=== PATIENT | male | born 1970 | race African-American/Black ===

== ENCOUNTER 2019-03-28 10:42 | Emergency (ER) | payer OTHER ==
[~2019-03-28] VITALS: Ht 175.3 cm; Wt 79.4 kg
[2019-03-28 11:01] LABS: ABSOLUTE NEUTROPHILS 9.7 thou/uL (1.4-8.2); BASOPHILS 0.6 % (0.0-2.0); EOSINOPHILS 1.4 % (0.0-3.0); HEMATOCRIT 36.7 % (42.0-52.0); HEMOGLOBIN 12.8 gm/dL (14.0-18.0); MCH 31.4 pg (26.0-34.0); MCV 89.8 fL (80.0-100.0); MONOCYTES 8.6 % (1.0-8.0); PLATELET COUNT 307 thou/uL (150-400); POLYS 76.4 % (36.0-66.0); RBC 4.09 mil/uL (4.50-6.00); RDW 12.8 % (10.5-14.5); WBC 12.7 thou/uL (4.0-11.0)
[2019-03-28 11:16] LABS: CALCIUM 9.6 mg/dL (8.5-10.1); CREATININE 0.8 mg/dL (0.7-1.3); POTASSIUM 3.4 mmol/L (3.5-5.1)
[2019-03-28 11:22] LABS: ALBUMIN 3.3 g/dL (3.4-5.0); TOTAL BILIRUBIN 0.6 mg/dL (<0.1-1.0)
[2019-03-28] MEDS ORDERED: DOXYCYCLINE 10100 MG PO (12:14)
[2019-03-28] MEDS ORDERED: TESSALON PERLE100 MG PO (12:14)
[2019-03-28 12:23] VITALS: BP 132/64
--- NOTE | 2019-03-28 16:23 | EKG ---
[place] [address] [facility] [place] [address] ELECTROCARDIOGRAM REPORT Name: MARGA WEISS Room #: DEP JESSICA Brown#: [id number] ������������������ Admission: 03/28/19 ������������������ Attend Phys: Discharge: 03/28/19 ������������������ Date of : 74 Report #: [id number] ����������������������������������������������������������������� [id number] THIS REPORT FOR: //name// [facility] ED Test Date: 2019-03-28 Test Time: 10:49:05 Pat Name: MARGA WEISS Department: Room: Gender: [place]: : 1970 Requested By: Yahir Hickman Order Number: [id number] MD: Justyn Saeed Measurements Intervals [facility] Rate: 82 P: 62 NC: 150 QRS: 43 QRSD: 88 T: 31 QT: 338 QTc: 395 Interpretive Statements Sinus rhythm Normal tracing No previous ECG available for comparison Electronically Signed On 03-28-2019 16:23:13 CDT by Justyn Saeed [email or web address] ��������������������������������������������� <ELECTRONICALLY SIGNED> ���������������������������������������� By: Justyn Saeed MD, [facility] ��������������������������������������������� 03/28/19 1623 1049 1049 Justyn Saeed MD, FACC /EPI
== END 2019-03-28 12:23 | disposition home or self-care (01) ==
LOC: ER 10:42
PROVIDERS: Physician Assistant
DX: J18.9 Pneumonia, unspecified organism (principal); R19.7 Diarrhea, unspecified; Z91.041 Radiographic dye allergy status